=== PATIENT | male | born 1980 | race Caucasian/White ===

== ENCOUNTER → 2024-02-14 15:25 | Outpatient (REF) | payer OTHER, SELFPAY | LOC: HWRAD 15:25 | PROVIDERS: ATTENDING PHYSICIAN Specialist; FAMILY PHYSICIAN Family Medicine | DX: R39.15 Urgency of urination (principal) | CPT/HCPCS: 74176 ==

== ENCOUNTER 2024-02-15 23:49 | Emergency (ER) | payer OTHER, SELFPAY ==
[2024-02-15 23:50] VITALS: BP 148/95
--- NOTE | 2024-02-16 00:27 | ED.GENMED ---
History of Present Illness
General
Chief Complaint: Male Genito-Urinary Symptoms
Source: patient
Exam Limitations: none
Time Seen by Provider: 02/16/24 00:02
History of Present Illness
History of Present Illness:
This is a 43 year old male that comes in with c/o urinary burning. States that last Saturday he started with what he thought was UTI symptoms. States that he went to and was given Antibiotic, Nitrofurantoin. States that this was not helping so he
went back on Saturday and they said that his culture was negative. States that he went to the Urologist on Saturday and he had a CT scan on Saturday at the [facility]. States that his pain has gone form a 4-5 to an 8/10. States that know his
urine is bloody. States that he feels that something is stuck in his penis. States that he has had chills, headache and urinary burning. Denies any fever, chest pain, SOB, abd pain, nausea, vomiting, diarrhea, dizziness.
Past History
Past History
ED Past Medical History: None; Negative Asthma, HTN, Hypercholesterolemia or NIDDM
ED Past Surgical History: Orthopedic (left ankle surgery)
Social History
Tobacco: Non-smoker
Alcohol: Occasional
Personal:
Living: with family
Review of Systems
Review of Systems
All Other Systems: ROS reviewed and negative except as documented in HPI and ROS
Constitutional: Reports chills; Denies fever
EENT: Reports no symptoms
Respiratory: Reports no symptoms; Denies cough or trouble breathing
Cardiac: Reports no symptoms; Denies chest pain
ABD/GI: Reports no symptoms; Denies abdominal pain, nausea, vomiting or diarrhea
: Reports dysuria, frequency, urgency, bleeding (in urine, ) and other (feels like something stuck)
Musculoskeletal: Reports no symptoms
Skin: Reports no symptoms
Neurological: Reports headache; Denies dizzy
Psychiatric: Reports no symptoms
Phy Exam
General Physical Exam
General Presentation: mild distress
General age: appears stated age
General Skin: warm and dry
General Habitus: normal
General Mental: alert
General Hydration: appears well hydrated
ENT Exam
ENT Exam: TM's normal, pharynx normal and neck supple
Eye Exam
Eye Exam: EOMI
Cardiovascular Exam
Cardiovascular Exam: regular rate/rhythm, no edema, no murmur and normal peripheral pulses
Pulmonary Exam
Pulmonary Exam: lungs clear, no respiratory distress, no rales, chest non tender, no crackles, no rhonchi, no wheezing and no cough
Gastrointestinal Exam
Gastrointestinal Exam: normal bowel sounds, non tender, soft, no organomegaly and non distended
Musculoskeletal Exam
Musculoskeletal Exam: full ROM and no edema
Skin Exam
Skin Exam: normal color, warm/dry, no rash and no petechia
Psychiatric Exam
Psychiatric Exam: normal mood/affect
Course
Orders/Labs/Results
Orders:
Orders
02/16/24 00:21
0.9% Sodium Chloride 1000 ml [Nss] 1,000 ml IV BOLUS
HYDROmorphone [Dilaudid] 1 mg IV NOW STA
Ondansetron Injectable [Zofran] 4 mg IV NOW STA
02/16/24 01:00
Complete Blood Count/With Diff Urgent
Comprehensive Metabolic Panel Urgent
Chlamydia/GC by PCR Urgent
ROGELIO Source: Urine
Specimen Description:
Source:: URINE
Date Specimen was Collected: 02/16/24
Time Specimen was Collected: 00:59
02/16/24 01:10
Urinalysis Reflex To Culture Urgent
Date Specimen was Collected: 02/16/24
Time Specimen was Collected: 00:59
Urine Microscopic Reflex Cult Urgent
Urine Culture Urgent
ROGELIO Source: U
Specimen Description:
Date Specimen was Collected: 02/16/24
Time Specimen was Collected: 00:59
Abnormal Lab Results
02/16/24 02/16/24
01:00 01:10
MPV 10.5 H fL
(7.4-10.4)
Abs Immat Gran (auto) 0.1 H 10^3/uL
(0-0.05)
Immature Gran % 0.7 H %
(0-0.5)
Glucose 107 H mg/dl
(70-99)
Ur Occult Blood Reflex 4+ A
(Negative)
Leukocyte Esterase Rfl 2+ A
(Negative)
Urine RBC 16-20 A /HPF
(0-2)
Urine WBC (Reflex) 80-90 A /HPF
(0-5)
Urine Bacteria (Reflex) Many A
(Negative)
Urine Albumin (Reflex) 1+ A
(Neg - Trace)
02/16/24 01:00
02/16/24 01:00
Glucose nonfasting. Urine positive for infection.
Vital Signs
Initial and Last Documented VS:
Initial Vital Signs
Temp Pulse Resp BP Pulse Ox
98.2 F 63 16 148/95 97
02/15/24 23:50 02/15/24 23:50 02/15/24 23:50 02/15/24 23:50 02/15/24 23:50
Last Documented Vital Signs
Temp Pulse Resp BP Pulse Ox
98.2 F 63 16 148/95 97
02/15/24 23:50 02/15/24 23:50 02/15/24 23:50 02/15/24 23:50 02/15/24 23:50
MDM/Problems Addressed
Differential Diagnosis Includes:
Renal calculus, UTI, GC/Chlamydia
MDM/Problems Addressed:
This is a 43 year old male that comes in with c/o urinary burning and blood in his urine. States that this started last Saturday and tonight his pain is worse. Patient saw Urologist and also had CT done on Saturday.
Will check labs, Urine and have CT sent to [facility] for reading on the CT scan. Will give IV fluids, and pain medication.
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 Serum and urine testing that are sent outs has been added on. Message sent to Dr. Kay as to treatment. She also felt that the serum should be sent out for
testing along with the urine. Explained to patient that at this time we will treat like a UTi and if the send out come back positive he will be called and treated. Will discharge home at this time.
Chronic conditions affecting care:
NA
Acute Exacerbation and/or Progression of Chronic Illness:
NA
*Radiology
Radiology exam reviewed: radiology read reviewed (CT on the read by [facility]- No evidence of ureteral stones, hydronephrosis, or perinephric stranding. No evidence of an acute inflammatory process or free fluid. Normal appendix. 3mm left
lower lobe nodule (im17) and a small juxtapleural nodular opacity along the Right hemidiaphragm (im 24))
*Pulse Oximetry
Patient hypoxic: no
*EKG
Interpreted by ED Provider?: NA
Rate: EKG- N/A
*Mounter Hand Interpretation
Rate: Mounter Hand- N/A
*Critical Care Note
Total Time (30-74mins, 75-104mins- exclusive of procedures): Not Applicable
ED Attending Note
-
Portions of this chart may have been created with voice recognition software.� Occasional wrong word or��sound alike� substitutions may have occurred due to the inherent limitations of voice recognition software.
Discharge Plan
Departure
Patient Disposition: Home (Routine Discharge)
Date of Disposition: 02/16/24
Time of Disposition: 02:13
Patient with high blood pressure during this ER visit?: Yes
Condition: Good
Covid-19: Not Applicable
Discharge Problem:
Urinary tract infection
Instructions: Urinary Tract Infection, Adult ED, BLOOD PRESSURE
Prescriptions:
New
cefdinir 300 mg capsule
300 mg PO BID Qty: 14 0RF
No Action
pantoprazole [Protonix] 40 mg tablet,delayed release (DR/EC)
40 mg PO DAILY Qty: 30 0RF
Referrals:
Marcus Garcia, [Family Provider] -
Geovanna Kay MD [Active] - As needed
Activity Restrictions/Additional Instructions:
As discussed, your blood work is normal. You do have a urinary tract infection. There is also concerned about a parasite in the urine. Your Urine and blood have been sent out for further testing. You will be treated for a UTI. A prescription has
been sent to your pharmacy for the next 7 days and you have been given IV antibiotics here tonight. You will be called if the send outs come back positive for any parasites. Please increase your water intake to 8-8oz glasses daily. IF YOU HAVE
FEVER, INCREASED OR CHANGING PAIN, OR YOU HAVE ANY OTHER CONCERNS PLEASE RETURN TO THE EMERGENCY ROOM.
Interventions
Interventions:
*Risk Screen - Suicide Last Done: 02/15/24 23:50
*General Assessment Last Done: 02/16/24 01:11
*Neglect/Abuse Screening Last Done: 02/15/24 23:50
ED- Fall Risk Assessment Last Done: 02/16/24 01:11
*ED COVID-19 Vaccine History Last Done: 02/16/24 01:11
ED-Male Genitourinary Assessment Last Done: 02/16/24 01:11
Discharge Date and Time
Print Language: IRISH
[2024-02-16] MEDS: DILAUDID 1 MG IV (01:06)
[2024-02-16] MEDS: NSS 1000 IV (01:06)
[2024-02-16] MEDS: ZOFRAN 4 MG IV (01:06)
[2024-02-16 01:11] VITALS: BMI 25.5
[2024-02-16 01:13] LABS: % Basophils 0.4 % (0-2); % Immature Granulocytes 0.7 % (0-0.5); % Neutrophils 62.9 % (42.2-75.2); Absolute Eosinophils 0.2 10^3/uL (0-0.7); Absolute Immature Granulocytes 0.1 10^3/uL (0-0.05); Absolute Monocytes 0.5 10^3/uL (0.1-0.6); Absolute Neutrophils 4.7 10^3/uL (1.4-6.5); Hematocrit 42.9 % (39.0-52.0); Hemoglobin 14.2 g/dL (13.0-18.0); Mean Corp Hgb Conc. 33.1 g/dL (33.0-37.0); Mean Corpuscular Hgb 30.1 pg (27.0-31.0); Mean Corpuscular Volume 91.1 fL (80.0-94.0); Mean Platelet Volume 10.5 fL (7.4-10.4); Nucleated Red Blood Cells % 0 % (-); Platelet Count 194 10^3/uL (130-400); Red Blood Cell Count 4.71 10^6/uL (4.70-6.10); Red Cell Dist. Width 11.7 % (11.5-14.5); White Blood Cell Count 7.5 10^3/uL (4.8-10.8)
[2024-02-16 01:13] LABS: Urine Albumin 1+ (Neg - Trace); Urine Bilirubin Negative (Negative); Urine Character Very Cloudy (Clear); Urine Color Yellow; Urine Glucose Negative (Negative); Urine Ketone Negative (Negative); Urine Leukocyte 2+ (Negative); Urine Nitrite Negative (Negative); Urine Occult Blood 4+ (Negative); Urine Urobilinogen Negative (Neg - 1+)
[2024-02-16 01:21] LABS: Urine Red Blood Cell 16-20 /HPF (0-2)
[2024-02-16 01:22] LABS: Urine Bacteria Many (Negative); Urine White Cell 80-90 /HPF (0-5)
[2024-02-16 01:33] LABS: ALT (SGPT) 31 U/L (0-50); AST (SGOT) 27 U/L (17-59); Albumin 4.2 g/dl (3.5-5.0); Alkaline Phosphatase 58 U/L (38-126); Blood Urea Nitrogen 20 mg/dl (9-20); Calcium 8.8 mg/dl (8.4-10.2); Carbon Dioxide 26 mmol/L (22-30); Chloride 105 mmol/L (98-107); Estimated Creatinine Clearance 108 ml/min; Glucose 107 mg/dl (70-99); Sodium 144 mmol/L (135-145); Total Bilirubin 0.3 mg/dl (0.2-1.3); Total Protein 6.8 g/dl (6.3-8.2); eGFR > 60.00
[2024-02-16] MEDS: ROCEPHIN 1000 MG IV (02:41)
[2024-02-16 02:52] VITALS: BP 128/78
== END 2024-02-16 02:55 | disposition home or self-care (01) ==
LOC: EMR 23:49
PROVIDERS: Clinical Nurse Specialist Family Health; EMERGENCY PHYSICIAN Emergency Medicine; FAMILY PHYSICIAN Family Medicine
DX: N39.0 Urinary tract infection, site not specified (principal)
CPT/HCPCS: 96374; 96375; 96361 ×2; 99284; 80053; 81003; 81015; 85025; 87086